=== PATIENT | male | born 1950 | race Caucasian/White ===

== ENCOUNTER 2020-04-30 16:57 | Emergency (ER) | payer BC ==
[~2020-04-30] VITALS: Ht 180.3 cm; Wt 86.2 kg
[2020-04-30] MEDS ORDERED: LIDOCAINE 2% JEL UROJET 10 ML MM ONE ×2 (17:24→17:30)
--- NOTE | 2020-04-30 17:44 | NUR ---
BIBS FROM HOME TO ER BED 5. AAOX4. NOT IN RESP DISTRESS. AMBULATORY. CAME IN FOR URINARY RETENTION S/P REZUM THERAPHY. PER PT, HE HAD A GARCIA CATH AFTER THE PROCEDURE HE HAD. EARLIER THIS MORNING AT 0900, GARCIA CATH WAS DISCONTINUED. SINCE THE REMOVAL HE HASNT HAD ANY URINE OUTPUT AND NOW IN PAIN BECAUSE OF THE RENTENTION. MD WAS AT THE BEDSIDE FOR EVAL. ORDER TO PUT A CATH RECEIVED AND DONE. PROCEDURE DONE WHILE OBSERVING STRICT STERILE TECHNIQUE.
--- NOTE | 2020-04-30 17:52 | NUR ---
URINE OUTPUT: 500ML. AWARE
--- NOTE | 2020-04-30 17:53 | NUR ---
URINE SAMPLE SENT TO LAB
[2020-04-30 17:56] LABS: BILIRUBIN,URINE Negative (NEGATIVE); BLOOD, URINE Moderate Ery/uL (NEGATIVE); COLOR,URINE Yellow (YELLOW); KETONES,URINE Negative (NEGATIVE); LEUKOCYTE ESTERASE ,URINE Negative (NEGATIVE); NITRITE, URINE Negative (NEGATIVE); PH,URINE 6.5 (5.0-8.0); PROTEIN,URINE Negative (NEGATIVE); UGLUCOSE Negative (NEGATIVE); UROBILINOGEN,URINE 0.2 EU/dL (0.2)
[2020-04-30 18:15] LABS: APPEARANCE,URINE HAZY (CLEAR)
[2020-04-30 18:17] LABS: BACTERIA,URINE Few /HPF (None Seen); SQUAMOUS EPITHELIAL CELL,UR Few /HPF (None Seen); WBC,URINE 0-2 /HPF (0-3)
--- NOTE | 2020-04-30 18:39 | NUR ---
Patient discharged to home in stable condition. Written and verbal after care instructions given. Patient verbalizes understanding of instruction.
[2020-04-30 18:40] VITALS: BP 123/85
== END 2020-04-30 18:41 | disposition home or self-care (01) ==
LOC: ER 17:02
DX: R33.9 Retention of urine, unspecified (principal); E78.5 Hyperlipidemia, unspecified
CPT/HCPCS: 51702; 81001; 99284; J3490; 81000-TC